=== PATIENT | male | born 1995 | race Caucasian/White ===

== ENCOUNTER 2019-07-16 03:28 | Emergency (ER) | payer MEDICAID ==
[~2019-07-16] VITALS: Ht 172.7 cm; Wt 54.4 kg
[2019-07-16 03:34] VITALS: Ht 172.7 cm; Wt 54.4 kg
[2019-07-16 05:35] VITALS: BP 106/73
== END 2019-07-16 05:29 | disposition home or self-care (01) ==
LOC: ED 03:28
DX: N39.0 Urinary tract infection, site not specified (principal)
CPT/HCPCS: J0696

== ENCOUNTER 2019-08-05 15:24 | Emergency (ER) | payer MEDICAID ==
[~2019-08-05] VITALS: Ht 170.2 cm; Wt 54.4 kg
[2019-08-05 15:32] VITALS: Ht 170.2 cm; Wt 54.4 kg
[2019-08-05 16:43] LABS: UA SPECIFIC GRAVITY 1.015 (1.005-1.035); microscopic required? YES; urine erythrocyte 3+ (NEGATIVE)
[2019-08-05 19:06] VITALS: BP 102/68
== END 2019-08-05 19:06 | disposition home or self-care (01) ==
LOC: ED 15:24
PROVIDERS: Emergency Medicine
DX: N30.00 Acute cystitis without hematuria (principal)

== ENCOUNTER 2019-08-10 07:25 | Emergency (ER) | payer MEDICAID ==
[~2019-08-10] VITALS: Ht 170.2 cm; Wt 56.7 kg
[2019-08-10 07:25] VITALS: Ht 170.2 cm; Wt 56.7 kg
[2019-08-10 10:49] VITALS: BP 109/61
== END 2019-08-10 10:55 | disposition home or self-care (01) ==
LOC: ED 07:25
DX: T83.018A Breakdown (mechanical) of other urinary catheter, initial encounter (principal)

== ENCOUNTER 2019-08-10 15:54 | Emergency (ER) | payer MEDICAID ==
[~2019-08-10] VITALS: Ht 170.2 cm; Wt 56.7 kg
[2019-08-10 15:56] VITALS: Ht 170.2 cm; Wt 56.7 kg
[2019-08-10 18:53] VITALS: BP 112/63
== END 2019-08-10 18:55 | disposition home or self-care (01) ==
LOC: ED 15:54
DX: T83.018A Breakdown (mechanical) of other urinary catheter, initial encounter (principal); N39.0 Urinary tract infection, site not specified; Z98.890 Other specified postprocedural states

== ENCOUNTER 2019-08-21 17:12 | Emergency (ER) | payer MEDICAID ==
[~2019-08-21] VITALS: Ht 170.2 cm; Wt 56.7 kg
[2019-08-21 18:34] VITALS: BP 101/57
== END 2019-08-21 19:11 | disposition home or self-care (01) ==
LOC: ED 17:12
DX: T83.091A Other mechanical complication of indwelling urethral catheter, initial encounter (principal); Z98.890 Other specified postprocedural states